=== PATIENT | female | born 1950 | race Caucasian/White ===

== ENCOUNTER 2019-05-14 15:35 | Outpatient (RCR) | payer MEDICARE, SELFPAY ==
--- NOTE | 2019-05-15 06:55 | ONC FU_ITS ---
Dr. Cerna Patient Follow-Up Note Patient: Arvind Brandon Unit #: [id number]: 1950 Dicatated By: Star Cerna M.D.Date of Visit:May 14, 2019 Onc Med Follow-up/Prog Note Chief Complaint: Breast cancer. History of Present Illness: This is a 69 year-old woman with lobular carcinoma involving the upper inner quadrant of the right breast, Stage IA (pT1c, N0, M0), ER/RI positive HER-2 negative. She was incidentally discovered to have an abnormal right breast lesion and an aortic aneurysm on a CT chest which was performed for right clavicular pain. Screening mammogram on 05/28/2015 was showed a new solid irregular mass measuring 15 x 16 mm in the posterior medial right breast along the nipple line. CT angiogram done for further evaluation of aortic aneurysm showed thoracic aortic ductus diverticulum. Again, right breast mass was noted as well as hiatal hernia and scoliosis of the T-spine. On 06/25/15 additional mammogram and ultrasound confirmed suspicious 1.6 cm mass at the 3:00 position of the right breast. She then underwent lumpectomy without sentinel lymph node biopsy on 07/11/[address] Grimaldo. Her surgical pathology showed 16mm grade 2, moderately differentiated invasive lobular carcinoma with negative margins, but inferior margin was close at 1 mm, with no lymphovascular invasion. Prognostic profile was ER 100%, RI 8%, HER-2/jose j 1.1 by FISH, IHC 1+. Thus, pT1c. On 07/25/2015 she had a resection of 6 axillary sentinel lymph nodes, all negative for metastatic disease. Thus, clinical stage at least IA (pT1c, N0, M0). Her Oncotype DX score returned at 29, corresponding to a 19% risk of distant recurrence following hormonal therapy alone. I had seen her on 09/10/2015 to discuss the Oncotype DX results and to plan further treatment. She opted not to take adjuvant chemotherapy. She was then given radiation to the right breast, which she completed on 11/17/2015 to a total dose of 6600 cGy. She began adjuvant hormonal therapy with anastrozole in December 2015. On her follow-up visit on 08/12/2016 she did report some increase in musculoskeletal pain, but she was able to continue the anastrozole. By December her pain had worsened significantly, and at that point I did have her stop treatment. She was then seen for a follow-up visit on 02/21/2017. Her pain had improved somewhat after stopping anastrozole, but it had not completely resolved. I discussed other options for adjuvant hormonal therapy. She decided to try the anastrozole again. Her other medical illnesses have been limited to hypothyroidism, GERD, and degenerative arthritis/degenerative disease of the spine. She had smoked in the past, but only for a couple of years. She had quit smoking by age 32. INTERIM HISTORY: I had seen her for a followup visit on 06/06/2017. Her joint pain had worsened significantly, and I did have her stop the anastrozole and transition to exemestane 25 mg daily. She unfortunately also experienced multiple side effects with exemestane including fatigue, weight gain, and hair loss along with increased musculoskeletal pain. As of her follow-up visit on 09/05/2017 I did have her stop treatment. She was then offered the option to continue adjuvant hormonal therapy with tamoxifen, but initially she was reluctant to try it. She was seen for a scheduled follow-up visit on 11/17/2017. At that point she did agree to begin further adjuvant hormonal therapy with tamoxifen 20 mg daily. She stopped it as of 01/23/2018 due to multiple side effects, mainly that she felt bloated all the time. She also was having vaginal discharge. She opted to attempt no further hormonal therapy, and she was then followed on observation/expectant management. She is seen for a follow-up visit. She indicates that on 03 May while visiting her sister she fell down the stairs, landing on her back. She says the fall jolted everything, and she has since then continued to have severe pain in her lower back and hips. She also has been having pain in the right lower quadrant abdominal area. A week prior to that episode she had developed some pain in her upper back area and with her right hand was not functioning properly. That pain was getting better. Her activity has been more limited since the fall, but she is still trying to work. She says she has hardly any appetite. She has not had fever. She recently had an episode of night sweating. She does not complain of shortness of breath, but she has had some wheezing and she also reports having a cough. She has not been having chest pain. She has had some nausea and since the fall she is also had some constipation. Bladder function remains adequate. She does not complain of headache or dizziness. She is still having some numbness in the right arm and hand. Medications: Aleve 1 (220 mg) Capsule Oral PRN, Aspirin Adult 1 Tablet (of 325 mg) Oral PRN, Omeprazole 1 (20 mg) Tablet, enteric coated Oral daily Allergies: No Known Allergies. Review of Systems: Constitutional - Her activity is more limited, but she is still working. She has hardly any appetite. No fever or hot flashes. She recently had an episode of night sweating. ECOG score is 1, ENMT - No sinus congestion/drainage. No mouth sores. No sore throat or difficulty swallowing, Hematologic/Lymphatic - No abnormal bruising or bleeding, Respiratory - No shortness of breath, but she has had some wheezing. She has had some cough. No pleuritic pain or hemoptysis, Cardiovascular - No angina pain. No palpitations, Gastrointestinal - She has had some nausea. Her acid reflux is managed with medication. She has had constipation since the fall. No blood in the stool or black stools, Genitourinary (F) - No dysuria or hematuria. No urinary frequency. No urgency or incontinence, Musculoskeletal - She has been having severe pain in her lower back and hips since falling down the stairs. One week earlier she had some pain in her upper back, Integumentary - No skin complications, Neurologic - No headache or dizziness. She has some numbness/tingling in her right arm and hand. She has no other focal neurologic symptoms, Psychiatric - No anxiety or depression. She is having difficulty sleeping. Vital Signs: Performed on May 14, 2019 16:02 Height - 65.00 in Weight - 219.4 lbs (LOW) BSA - 2.06 sq.m BMI - 36.51 (HIGH) Temperature - 98.8 F Pulse - 96 /min Respiration - 24 /min BP - 131/85 mm(hg) O2 Sat - 99 % Pain - 9 Physical Examination: Constitutional - She appears to be in significant discomfort, Eyes - Sclerae nonicteric. Conjunctivae clear, ENMT - No lesions noted in the oral cavity, Hematologic/Lymphatic - No cervical or clavicular adenopathy, Respiratory - Lungs are clear with good air movement bilaterally, Cardiovascular - Heart rhythm is regular. There is a II/ systolic murmur. There is no gallop or rub noted, Abdomen - Soft. Liver and spleen are not enlarged. There is no abdominal mass or ascites noted and there is no inguinal adenopathy, Back/Spine - There is localized mild tenderness in the upper back just to the right of the midline. There is more generalized tenderness in the lumbar area, Extremities - No edema, Neurologic - No focal neurologic deficits noted. Impression: 1. Patient with invasive lobular carcinoma of the right breast, stage IA (pT1c, N0, M0), ER/RI positive and HER-2/jose j negative. She was intermediate risk by Oncotype DX with a score of 29 corresponding to a 19% risk of distal recurrence following hormonal treatment alone. 2. Her initial treatment included lumpectomy and right axillary sentinel lymph node biopsy. Adjuvant chemotherapy was recommended, but she declined. She then underwent radiation to the right breast, which she completed on 11/17/2015 to a total dose of 6600 cGy. 3. She began adjuvant hormonal therapy with anastrozole in December 2015. It was stopped a year later due to worsening musculoskeletal pain. 4. She began further adjuvant hormonal therapy with exemestane in May 2017, but discontinued as of August 2017 due to multiple side effects. Her other medical illnesses include: 5. GERD. 6. Hypothyroidism. 7. Osteoarthritis. 8. Scoliosis with lower back pain. As of her visit on 11/17/2017 she did agree to a trial of further adjuvant hormonal therapy with tamoxifen 20 mg daily. She stopped it as of 01/23/2018 due to multiple side effects, most significantly bloating and vaginal discharge. Those symptoms had subsequently improved. She opted to attempt no further hormonal therapy, and she was then followed on observation/expectant management. During follow-up she continued to have some fatigue, and she also reported increasing pain in her hips, enough that it was limiting her activity. There did not appear to be any evidence, though, of recurrence of her breast cancer. She presents now with increased pain in the lower back/hip area after falling down the stairs and landing on her back. Since the fall she also has been having significant pain in the right lower quadrant abdominal area. A week prior to that episode she was having pain in her upper back with associated neurologic symptoms in the right arm and hand. Plan: She will be scheduled to come in for CBC and comprehensive metabolic profile, CT abdomen/pelvis, and bone scan. She will have further evaluation as indicated. Signed By: Star Cerna M.D. <<Signature on File>>
== END 2019-06-08 23:59 | disposition home or self-care (01) ==
LOC: ONCMED 15:35
PROVIDERS: Family Provider Family Medicine; PCP Family Medicine; Visit Provider Internal Medicine Medical Oncology
DX: Z08 Encounter for follow-up examination after completed treatment for malignant neoplasm (principal); Z85.3 Personal history of malignant neoplasm of breast; E03.9 Hypothyroidism, unspecified; K21.9 Gastro-esophageal reflux disease without esophagitis; M19.90 Unspecified osteoarthritis, unspecified site; R10.31 Right lower quadrant pain; M41.86 Other forms of scoliosis, lumbar region; M54.6 Pain in thoracic spine; Z92.23 Personal history of estrogen therapy; Z92.3 Personal history of irradiation; Z87.891 Personal history of nicotine dependence
CPT/HCPCS: 99214

== ENCOUNTER 2019-05-31 07:11 | Outpatient (CLI) | payer MEDICARE, SELFPAY ==
--- NOTE | 2019-05-31 07:17 | CT_ITS ---
WS: [id number] CT ABDOMEN AND PELVIS WITH CONTRAST HISTORY: BREAST CANCER TECHNIQUE: Imaging performed of the abdomen and pelvis with IV contrast. Single phase imaging of the abdomen. Coronal and sagittal reformats are submitted. All CT scans at [facility] use at least one of these dose optimization techniques: automated exposure control; mA and/or kV adjustment per patient size (includes targeted exams where dose is matched to clinical indication); or iterativ e reconstruction. IV CONTRAST: Omnipaque 300; 95 mL IV. Oral contrast: Yes. DLP: 1410.2 mGy.cm COMPARISON: Right-sided abdominal pain. Prior breast cancer history. Lower thorax: Linear subsegmental atelectasis at the LEFT base. Heart is normal size. Moderate size h iatal hernia. Liver/biliary system: Normal size with no intrahepatic dilatation. Gallbladder: Normal. No gallstones or wall thickening. No pericholecystic fluid. Pancreas: Normal. Spleen: Normal. Adrenal glands: Normal. Right kidney: Normal. Left kidney: Cortical hypodensity in the lower pole is too small to characterize. No solid mass. No r enal obstruction. Aorta: Normal. Lymphadenopathy: None. Free fluid: None. GI tract: Normal appendix. There is moderate diffuse fecal retention and constipation. Scattered dive rticula in the sigmoid colon no mass or mucosal thickening identified by CT. Abdominal wall: Fat-containing umbilical hernia with an orifice of 1.5 cm. Pelvis: No pelvic mass or fluid. Urinary bladder is minimally distended. No adenopathy. Mild atrophy of the muscles. Bones: Degenerative LEFT convex scoliosis of the lumbar spine. L1 compression fracture approximately 20%. No retropulsion. Suspect this fracture is acute to subacute. Does not appear to be a pathologica l fracture. CT/CT abdomen pelvis w con* [id number] IMPRESSION: 1. Moderate constipation and scattered diverticular disease. No acute divertic ulitis or obstruction. 2. Acute to subacute L1 compression fracture by 20% without retropulsion. Does not appear to be a pathological fracture. 3. Subsegmental atelectasis LEFT lung base. 4. Moderate hiatal hernia.
--- NOTE | 2019-05-31 07:18 | NM_ITS ---
WS: [id number] NUCLEAR MEDICINE WHOLE BODY BONE SCAN HISTORY: BREAST CANCER COMPARISON: CT 05/31/2019 reviewed. TECHNIQUE: The patient was injected with 27.2 mCi of Technetium 99m HDP and serial whole-body scintig ashley have been performed with anterior and posterior images. Large [id number] imaging over the rib s and skull. Focal area of increased uptake in the L1 vertebral body, slightly greater on the LEFT than the RIGHT. Corresponds to the fracture seen on the recent CT. S-shaped thoracolumbar scoliosis. No additional s pine fractures. No rib lesions identified. Mild uptake within the AC joints, glenohumeral joints and at the knees from arthritis. Soft tissue uptake is normal. Normal activity in the kidneys. NM/NM bone scan whole body* [id number] IMPRESSION: 1. No evidence for metastatic osseous disease. 2. Moderate intense uptake at L1 corresponds to the fracture seen on CT also. Favor osteoporotic fracture.
[2019-05-31] MEDS: iohexol 300 mg/mL 50 mL Btl PO (07:31)
[2019-05-31 08:12] LABS: Basophils % 0.5 %; Eosinophils # 0.5 10^3/uL (0.0-0.8); Eosinophils % 6.9 %; Hematocrit 39.1 % (37.0-47.0); Hemoglobin 12.6 g/dL (11.5-15.3); Lymphocytes # 2.3 10^3/uL (0.8-4.8); Lymphocytes % 35.3 %; Mean Corpuscular HGB Conc 32.2 g/dL (30.0-36.0); Mean Corpuscular Volume 90.1 fL (81-99); Monocytes # 0.6 10^3/uL (0.2-0.9); Monocytes % 9.2 %; Neutrophils # 3.2 10^3/uL (1.8-7.7); Neutrophils % 47.9 %; Nucleated Red Blood Cells % 0 %; Platelet Count 275 10^3/cmm (130-400); Red Blood Count 4.34 10^6/uL (4.1-5.3); Red Cell Distribution Width 14.6 % (12.1-15.1); White Blood Count 6.6 10^3/uL (4.0-10.0)
[2019-05-31 08:37] LABS: Blood Urea Nitrogen 13 mg/dL (8-23); Glomerular Filtration Rate 83.5 mL/min (90-130)
[2019-05-31 08:51] LABS: Alanine Aminotransferase 10 U/L (0-33); Albumin Level 4.9 g/dL (3.5-5.2); Alkaline Phosphatase 84 IU/L (35-105); Anion Gap 16.3 (5-19); Aspartate Amino Transferase 9 U/L (0-32); Calcium 10.5 mg/Dl (8.8-10.2); Carbon Dioxide 26 mmol/L (22-29); Chloride 104 mmol/L (98-107); Globulin 2.2 g/dL (1.3-4.6); Glucose 118 mg/dL (74-106); Potassium 4.3 mmol/L (3.5-5.1); Sodium 142 mmol/L (136-145); Thyroid Stimulating Hormone 4.24 uIU/mL (0.27-4.20); Total Bilirubin 0.4 mg/dL (0.15-1.2); Total Protein 7.1 g/dL (6.6-8.7)
[2019-05-31 08:58] LABS: 25 Hydroxy Vitamin D 17 ng/mL (30-100)
[2019-05-31] MEDS: iohexol 300 mg/mL 100 mL Btl IV (09:39)
[2019-05-31 15:49] LABS: Chol HDL Ratio 3.08 mg/dL (0.0-4.40); Cholesterol 268 mg/dL (0-200); HDL Cholesterol 87 mg/dL (60-100); LDL Cholesterol Calculated 163 mg/dL (50-129); LDL HDL Ratio 1.87 RATIO (0.00-3.22); Triglycerides 92 mg/dL (0-150)
== END 2019-05-31 07:12 | disposition home or self-care (01) ==
PROVIDERS: Family Provider Family Medicine; PCP Family Medicine; Visit Provider Internal Medicine Medical Oncology
DX: C50.211 Malignant neoplasm of upper-inner quadrant of right female breast (principal); M89.8X9 Other specified disorders of bone, unspecified site; E03.9 Hypothyroidism, unspecified; R10.31 Right lower quadrant pain; K44.9 Diaphragmatic hernia without obstruction or gangrene; J98.11 Atelectasis; M48.56XA Collapsed vertebra, not elsewhere classified, lumbar region, initial encounter for fracture; K59.00 Constipation, unspecified; K57.90 Diverticulosis of intestine, part unspecified, without perforation or abscess without bleeding
CPT/HCPCS: 36415; 74177; 78306; 80053; 80061; 82306; 84443; 85025; A9561

== ENCOUNTER 2019-06-18 06:07 | Outpatient (RCR) | payer MEDICARE, SELFPAY ==
--- NOTE | 2019-06-18 11:10 | MM_ITS ---
WS: [id number] BILATERAL DIGITAL DIAGNOSTIC MAMMOGRAPHY WITH CAD CLINICAL INFORMATION: HX OF BREAST CA HISTORY: History of right lumpectomy with radiation therapy. COMPARISON: June 07, 2018 TECHNIQUE: Bilateral CC and MLO views. FINDINGS: The breasts are composed of heterogeneous fibroglandular density tissue, which can limit the detectio n of small underlying mass lesions. No suspicious mass, asymmetry, calcifications, or architectural d istortion. Stable postoperative changes lumpectomy with parenchymal fibrosis medial posterior right b reast. Prominent asymmetric breast tissue upper outer right breast is unchanged. No evidence of malig brissa. MM/[id number] IMPRESSION: BI-RADS: 2-Benign FOLLOW UP: 1 Year Follow-up Recommend return to annual diagnostic mammography.
== END 2019-07-07 23:59 | disposition home or self-care (01) ==
LOC: ONCMED 06:07
PROVIDERS: Family Provider Family Medicine; PCP Family Medicine; Visit Provider Internal Medicine Medical Oncology
DX: Z85.3 Personal history of malignant neoplasm of breast (principal); Z92.3 Personal history of irradiation
CPT/HCPCS: 77066

== ENCOUNTER 2020-04-25 11:12 | Outpatient (CLI) | payer MEDICARE, SELFPAY ==
[2020-01-07 12:13] LABS: Basophils % 0.5 %; Eosinophils # 0.1 10^3/uL (0.0-0.8); Eosinophils % 1.7 %; Hematocrit 41.8 % (37.0-47.0); Hemoglobin 12.7 g/dL (11.5-15.3); Lymphocytes # 1.5 10^3/uL (0.8-4.8); Lymphocytes % 19.9 %; Mean Corpuscular HGB Conc 30.4 g/dL (30.0-36.0); Mean Corpuscular Hemoglobin 28.9 pg (28.0-34.0); Mean Platelet Volume 10.6 fL (7.4-10.4); Monocytes # 0.7 10^3/uL (0.2-0.9); Monocytes % 9.4 %; Neutrophils # 5.25 10^3/uL (1.8-7.7); Neutrophils % 68.2 %; Nucleated Red Blood Cells % 0 %; Platelet Count 222 10^3/cmm (130-400); Red Cell Distribution Width 14.9 % (12.1-15.1); White Blood Count 7.7 10^3/uL (4.0-10.0)
[2020-01-07 13:00] LABS: Alanine Aminotransferase 10 U/L (0-33); Albumin Level 4.4 g/dL (3.5-5.2); Alkaline Phosphatase 60 IU/L (35-105); Aspartate Amino Transferase 7 U/L (0-32); Blood Urea Nitrogen 11 mg/dL (8-23); Carbon Dioxide 24 mmol/L (22-29); Chloride 106 mmol/L (98-107); Globulin 2.9 g/dL (1.3-4.6); Glomerular Filtration Rate 83.5 mL/min (90-130); Glucose 104 mg/dL (65-115); Osmolality Calculated 288 mOsm/kg (285-295); Sodium 141 mmol/L (136-145); Total Bilirubin 0.2 mg/dL (0.15-1.2); Total Protein 7.3 g/dL (6.6-8.7)
== END 2020-04-25 11:13 | disposition home or self-care (01) ==
PROVIDERS: PCP Family Medicine; Visit Provider Internal Medicine Medical Oncology
DX: C50.211 Malignant neoplasm of upper-inner quadrant of right female breast (principal); Z17.0 Estrogen receptor positive status [ER+]; Z78.0 Asymptomatic menopausal state
CPT/HCPCS: 80053; 85025

== ENCOUNTER 2020-06-30 13:01 | Outpatient (CLI) | payer MEDICARE, SELFPAY ==
--- NOTE | 2020-06-30 13:16 | MM_ITS ---
WS: [id number] BILATERAL DIGITAL DIAGNOSTIC MAMMOGRAM MAMMOGRAPHY WITH CAD CLINICAL INFORMATION: HX OF BREAST CA COMPARISON: June 18, 2019 TECHNIQUE: Bilateral CC, MLO, and ML views FINDINGS: Scattered fibroglandular densities bilaterally. Prior lumpectomy inner quadrant right breast with par enchymal fibrosis. A few stable punctate calcifications right breast. No suspicious focal mass, asymmetry, calcifications, or architectural distortion. No evidence of jayy gnancy. MM/[id number] IMPRESSION: BI-RADS: 2-Benign FOLLOW UP: 1 Year Follow-up Recommend return to annual diagnostic mammography.
== END 2020-06-30 13:02 | disposition home or self-care (01) ==
LOC: RADSHAW 13:03
PROVIDERS: PCP Family Medicine; Visit Provider Internal Medicine Medical Oncology
DX: C50.211 Malignant neoplasm of upper-inner quadrant of right female breast (principal)
CPT/HCPCS: 77066

== ENCOUNTER 2020-07-17 06:15 | Outpatient (CLI) | payer MEDICARE, SELFPAY ==
[2020-07-17 13:30] LABS: Basophils % 0.5 %; Eosinophils # 0.2 10^3/uL (0.0-0.8); Hematocrit 41.8 % (37.0-47.0); Hemoglobin 13.1 g/dL (11.5-15.3); Lymphocytes # 2.1 10^3/uL (0.8-4.8); Lymphocytes % 33.5 %; Mean Corpuscular HGB Conc 31.3 g/dL (30.0-36.0); Mean Corpuscular Hemoglobin 29.2 pg (28.0-34.0); Mean Corpuscular Volume 93.1 fL (81-99); Mean Platelet Volume 10.4 fL (7.4-10.4); Monocytes # 0.5 10^3/uL (0.2-0.9); Monocytes % 8.1 %; Neutrophils # 3.42 10^3/uL (1.8-7.7); Neutrophils % 54.7 %; Nucleated Red Blood Cells % 0 %; Platelet Count 258 10^3/cmm (130-400); Red Blood Count 4.49 10^6/uL (4.1-5.3); Red Cell Distribution Width 14.6 % (12.1-15.1); White Blood Count 6.3 10^3/uL (4.0-10.0)
[2020-07-17 13:47] LABS: Alanine Aminotransferase 11 U/L (0-33); Albumin Level 4.4 g/dL (3.5-5.2); Alkaline Phosphatase 62 IU/L (35-105); Aspartate Amino Transferase 10 U/L (0-32); Blood Urea Nitrogen 13 mg/dL (8-23); Calcium 9.5 mg/dL (8.5-10.5); Carbon Dioxide 26 mmol/L (22-29); Chloride 105 mmol/L (98-107); Globulin 2.8 g/dL (1.3-4.6); Glomerular Filtration Rate 62.3 mL/min (90-130); Glucose 102 mg/dL (65-115); Osmolality Calculated 290 mOsm/kg (285-295); Sodium 140 mmol/L (136-145); Total Bilirubin 0.4 mg/dL (0.15-1.2); Total Protein 7.2 g/dL (6.6-8.7)
--- NOTE | 2020-07-17 15:03 | ONC FU_ITS ---
Dr. Cerna Patient Follow-Up Note Patient: Arvind Brandon Unit #: [id number]: [id number] Dicatated By: Star Cerna M.D.Date of Visit:Jul 17, 2020 Onc Med Follow-up/Prog Note Chief Complaint: Breast cancer. History of Present Illness: This is a 70 year-old woman with lobular carcinoma involving the upper inner quadrant of the right breast, Stage IA (pT1c, N0, M0), ER/OR positive HER-2 negative. She was incidentally discovered to have an abnormal right breast lesion and an aortic aneurysm on a CT chest which was performed for right clavicular pain. Screening mammogram on 05/28/2015 was showed a new solid irregular mass measuring 15 x 16 mm in the posterior medial right breast along the nipple line. CT angiogram done for further evaluation of aortic aneurysm showed thoracic aortic ductus diverticulum. Again, right breast mass was noted as well as hiatal hernia and scoliosis of the T-spine. On 06/25/15 additional mammogram and ultrasound confirmed suspicious 1.6 cm mass at the 3:00 position of the right breast. She then underwent lumpectomy without sentinel lymph node biopsy on 07/11/[address] Grimaldo. Her surgical pathology showed 16mm grade 2, moderately differentiated invasive lobular carcinoma with negative margins, but inferior margin was close at 1 mm, with no lymphovascular invasion. Prognostic profile was ER 100%, OR 8%, HER-2/jose j 1.1 by FISH, IHC 1+. Thus, pT1c. On 07/25/2015 she had a resection of 6 axillary sentinel lymph nodes, all negative for metastatic disease. Thus, clinical stage at least IA (pT1c, N0, M0). Her Oncotype DX score returned at 29, corresponding to a 19% risk of distant recurrence following hormonal therapy alone. I had seen her on 09/10/2015 to discuss the Oncotype DX results and to plan further treatment. She opted not to take adjuvant chemotherapy. She was then given radiation to the right breast, which she completed on 11/17/2015 to a total dose of 6600 cGy. She began adjuvant hormonal therapy with anastrozole in December 2015. On her follow-up visit on 08/12/2016 she did report some increase in musculoskeletal pain, but she was able to continue the anastrozole. By December her pain had worsened significantly, and at that point I did have her stop treatment. She was then seen for a follow-up visit on 02/21/2017. Her pain had improved somewhat after stopping anastrozole, but it had not completely resolved. I discussed other options for adjuvant hormonal therapy. She decided to try the anastrozole again. I had seen her for a followup visit on 06/06/2017. Her joint pain had worsened significantly, and I did have her stop the anastrozole and transition to exemestane 25 mg daily. She unfortunately also experienced multiple side effects with exemestane including fatigue, weight gain, and hair loss along with increased musculoskeletal pain. As of her follow-up visit on 09/05/2017 I did have her stop treatment. She was then offered the option to continue adjuvant hormonal therapy with tamoxifen, but initially she was reluctant to try it. She was seen for a scheduled follow-up visit on 11/17/2017. At that point she did agree to begin further adjuvant hormonal therapy with tamoxifen 20 mg daily. She stopped it as of 01/23/2018 due to multiple side effects, mainly that she felt bloated all the time. She also was having vaginal discharge. She opted to attempt no further hormonal therapy, and she was then followed on observation/expectant management. Her other medical illnesses have been limited to hypothyroidism, GERD, and degenerative arthritis/degenerative disease of the spine. She had smoked in the past, but only for a couple of years. She had quit smoking by age 32. INTERIM HISTORY: She has been feeling good generally. 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 Since then she has been feeling a lot better. She still has limited activity due to her underlying degenerative arthritis. ECOG score is 2. She has good appetite. She has no fever, night sweats, or hot flashes. She has no shortness of breath, cough, or chest pain. She has had mild constipation. She has no other GI or complaints. She has pain in her back and right hip with activity, but she does not have much pain at rest. She does not complain of headache or dizziness, and she has no focal neurologic symptoms. Medications: Aleve 1 (220 mg) Capsule Oral PRN, Aspirin Adult 1 Tablet (of 325 mg) Oral PRN, Omeprazole 1 (20 mg) Tablet, enteric coated Oral daily Allergies: No Known Allergies. Vital Signs: Performed on Jul 17, 2020 14:26 Height - 65.00 in Weight - 220 lbs (HIGH) BSA - 2.06 sq.m BMI - 36.61 (HIGH) Temperature - 98.6 F Pulse - 99 /min Respiration - 18 /min BP - 150/98 mm(hg) (HIGH) O2 Sat - 97 % Pain - 0 Fatigue - 0 Physical Examination: Constitutional - She looks good generally, Eyes - Sclerae nonicteric. Conjunctivae clear, ENMT - No lesions noted in the oral cavity, Hematologic/Lymphatic - No cervical or clavicular adenopathy, Respiratory - Lungs are clear with good air movement bilaterally, Cardiovascular - Heart rhythm is regular. There is a II/ systolic murmur. There is no gallop or rub noted, Breasts - There is slight induration at the lumpectomy site in the right breast. There are no breast masses noted. There is no axillary adenopathy, Abdomen - Soft. Liver and spleen are not enlarged. There is no abdominal mass or ascites noted and there is no inguinal adenopathy, Extremities - No edema. Pedal pulses are palpable bilaterally, Neurologic - No focal neurologic deficits noted. Lab/Imaging: Test performed on Jul 17, 2020 13:12 Sodium 140 mmol/L Potassium 4.0 mmol/L Chloride 105 mmol/L CO2 26 mmol/L Anion Gap 13.0 BUN 13 mg/dL Creatinine 0.9 mg/dL Cr Clearance (Est) 94.25 mL/min eGFR 62.3 mL/min Glucose 102 mg/dL Osmolality - Calculated 290 mOsm/kg Calcium 9.5 mg/dL Protein, Total 7.2 g/dL Albumin 4.4 g/dL Globulin 2.8 g/dL Bilirubin, Total 0.4 mg/dL ALT (SGPT) 11 U/L AST (SGOT) 10 U/L Alkaline Phosphatase 62 IU/L WBC 6.3 10 3/uL RBC 4.49 10 6/uL HGB 13.1 g/dL HCT 41.8 % MCV 93.1 fL MCH 29.2 pg MCHC 31.3 g/dL RDW 14.6 % Platelet Count 258 10 3/cmm MPV 10.4 fL Neutrophils 3.42 10 3/uL Lymphocytes 2.1 10 3/uL Monocytes 0.5 10 3/uL Eosinophils 0.2 10 3/uL Basophils 0.0 10 3/uL Neutrophil % 54.7 % Lymphocyte % 33.5 % Monocyte % 8.1 % Eosinophil % 3.0 % Basophils % 0.5 % NRBC % 0 % Her bilateral diagnostic mammogram on 06/30/2020 was BI-RADS 2, benign. Yearly follow-up was recommended. Problem List: 1. Moderately differentiated invasive lobular carcinoma of the right breast, stage IA (pT1c, N0, M0), ER/OR positive and HER-2/jose j negative. She was intermediate risk by Oncotype DX with a score of 29 corresponding to a 19% risk of distal recurrence following hormonal treatment alone. She declined adjuvant chemotherapy. 2. GERD. 3. Hypothyroidism. 4. Osteoarthritis. 5. Scoliosis with lower back pain. Problems Addressed with this Encounter and Plan: Patient with invasive lobular carcinoma of the right breast, stage IA (pT1c, N0, M0), ER/OR positive and HER-2/jose j negative. She was intermediate risk by Oncotype DX with a score of 29 corresponding to a 19% risk of distal recurrence following hormonal treatment alone. Her initial treatment included lumpectomy and right axillary sentinel lymph node biopsy. She declined adjuvant chemotherapy. She then underwent radiation to the right breast, which she completed on 11/17/2015 to a total dose of 6600 cGy. She began adjuvant hormonal therapy with anastrozole in December 2015. It was stopped a year later due to worsening musculoskeletal pain. She began further adjuvant hormonal therapy with exemestane in May 2017, but discontinued as of August 2017 due to multiple side effects. As of her visit on 11/17/2017 she did agree to a trial of further adjuvant hormonal therapy with tamoxifen 20 mg daily. She stopped it as of 01/23/2018 due to multiple side effects, most significantly bloating and vaginal discharge. Those symptoms had subsequently improved. She was then followed on observation/expectant management. During follow-up she has had ongoing issues with the degenerative arthritis, which does limit her activity. Overall, though, she has been doing well clinically. She is now close to 5 years out from completion of radiation with no evidence of recurrence of the breast cancer. She will now be continuing regular follow-up with Dr. Curtis. She is aware that she does need to have a yearly diagnostic mammogram. I will just see her again as needed. Signed By: Star Cerna M.D. <<Signature on File>>
== END 2020-07-17 06:16 | disposition home or self-care (01) ==
LOC: ONCMED 06:17
PROVIDERS: PCP Family Medicine; Visit Provider Internal Medicine Medical Oncology
DX: Z08 Encounter for follow-up examination after completed treatment for malignant neoplasm (principal); Z85.3 Personal history of malignant neoplasm of breast; M19.90 Unspecified osteoarthritis, unspecified site; Z92.23 Personal history of estrogen therapy; Z92.3 Personal history of irradiation
CPT/HCPCS: 36415; 80053; 85025; 99214

== ENCOUNTER 2021-05-22 12:56 | Outpatient (CLI) | payer MEDICARE, SELFPAY ==
--- NOTE | 2021-05-22 13:02 | XR_ITS ---
WS: [id number] DEXA (DUAL ENERGY X-RAY ABSORPTIOMETRY) Bone mineral density was performed using a Event[employer] machine. HISTORY: POSTMENOPAUSAL COMPARISON: 12/15/2015 Lumbar spine BMD (L1-L3): 1.229 T score: 0.5 Z score: 1. 0 Total hip BMD: Left: 0.824 g/cm2. T score: -1.5 Z score: -0.9 Right: 0.869 g/cm2. T score: -1.1 Z score: -0.5 10 year probability of a major osteoporotic fracture is 16%. Compared to the prior study from 2015. Lumbar spine bone mineral density has decreased by 7.9%. Bilateral hips bone mineral density has decreased by 5.5%. XR/XR DEXA axial skeleton* [id number] IMPRESSION: OSTEOPENIA based upon the WHO classification for females. As compared to the prior examination has been a significant DECREASE in bone mi neral density within the lumbar spine and hips.
== END 2021-05-22 12:57 | disposition home or self-care (01) ==
PROVIDERS: PCP Family Medicine; Visit Provider Nurse Practitioner Family
DX: Z78.0 Asymptomatic menopausal state (principal); M85.80 Other specified disorders of bone density and structure, unspecified site
CPT/HCPCS: 77080

== ENCOUNTER 2021-09-03 11:17 | Outpatient (CLI) | payer MEDICARE, SELFPAY ==
--- NOTE | 2021-09-03 11:33 | MM_ITS ---
WS: [id number] BILATERAL 3D TOMOSYNTHESIS DIGITAL DIAGNOSTIC MAMMOGRAPHY WITH CAD CLINICAL INFORMATION: MALIGNANT NEOPLASM OF UPPER INNER QUADRANT COMPARISON: June 30, 2020 TECHNIQUE: Bilateral CC, MLO, and ML views. FINDINGS: Scattered fibroglandular densities bilaterally. A few tiny punctate calcifications RIGHT breast. Prio r lumpectomy upper inner quadrant RIGHT breast with parenchymal fibrosis. No suspicious focal mass, asymmetry, calcifications, or architectural distortion. No evidence of jayy gnancy. MM/[place] [id number] IMPRESSION: BI-RADS: 2-Benign FOLLOW UP: 1 Year Follow-up Recommend return to annual diagnostic mammography.
== END 2021-09-03 11:18 | disposition home or self-care (01) ==
LOC: RAD 11:21
PROVIDERS: PCP Family Medicine; Visit Provider Nurse Practitioner Family
DX: C50.211 Malignant neoplasm of upper-inner quadrant of right female breast (principal)
CPT/HCPCS: 77062

== ENCOUNTER 2022-02-03 19:59 | Emergency (ER) | payer MEDICARE, SELFPAY ==
[2022-02-03 20:06] VITALS: BP 117/76; PULSE 75; RESP 16; TEMP 36.1; O2SAT 96; BMI 37.8
[2022-02-03 20:08] VITALS: PULSE 78; RESP 16; TEMP 36.1
--- NOTE | 2022-02-03 20:08 | CTR_ITS ---
PROCEDURE INFORMATION: Exam: CT Head Without Contrast Exam date and time: 02/03/2022 8:20 PM Age: 71 years old Clinical indication: Syncope and collapse; Patient HX: Witnessed syncopal episode without fall today. ; Additional info: Syncoope TECHNIQUE: Imaging protocol: Computed tomography of the head without contrast. Radiation optimization: All CT scans at this facility use at least one of these dose optimization techniques: automated exposure control; mA and/or kV adjustment per patient size (includes targeted exams where dose is matched to clinical indication); or iterative reconstruction. COMPARISON: MO bone scan whole body* [id number] 05/31/2019 7:18 AM RADIATION DOSE METRICS: Total DLP (mGy-cm): 1084.88 FINDINGS: Brain: No hemorrhage. No edema. Moderate diffuse cerebral atrophy. No significant white matter disease. No mass effect. Cerebral ventricles: No ventriculomegaly. Paranasal sinuses: Visualized sinuses are unremarkable. No fluid levels. Mastoid air cells: Visualized mastoid air cells are well aerated. Bones/joints: Unremarkable. No acute fracture. Soft tissues: Unremarkable. CT/CT head wo con* [id number] IMPRESSION: No acute intracranial abnormality.
--- NOTE | 2022-02-03 20:08 | XRR_ITS ---
PROCEDURE INFORMATION: Exam: XR Chest Exam date and time: 02/03/2022 8:26 PM Age: 71 years old Clinical indication: Other: Syncope TECHNIQUE: Imaging protocol: Radiologic exam of the chest. Views: 1 view. COMPARISON: CT chest con [id number] 11/14/2015 10:07 AM FINDINGS: Lungs: Unremarkable. No consolidation. Pleural spaces: Unremarkable. No pleural effusion. No pneumothorax. Heart/Mediastinum: Moderate to large hiatal hernia. No cardiomegaly. Bones/joints: Unremarkable. XR/XR chest 1V portable [id number] IMPRESSION: 1. No acute findings. 2. Moderate to large hiatal hernia.
--- NOTE | 2022-02-03 20:13 | ECG_ITS ---
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 Measurements Intervals [place] Rate: 75 P: 44 ND: 162 QRS: 56 QRSD: 82 T: 53 QT: 388 QTc: 436 Interpretive Statements SINUS RHYTHM No previous ECG available for comparison Electronically Signed On 02-04-2022 8:53:57 CDT by Mateo Zambrano M.D. [email or web address]
[2022-02-03 20:23] LABS: Basophils % 0.3 %; Eosinophils # 0.2 10^3/uL (0.0-0.8); Eosinophils % 2.2 %; Hematocrit 35.3 % (37.0-47.0); Hemoglobin 10.8 g/dL (11.5-15.3); Lymphocytes # 2.4 10^3/uL (0.8-4.8); Lymphocytes % 27.2 %; Mean Corpuscular HGB Conc 30.6 g/dL (30.0-36.0); Mean Corpuscular Hemoglobin 25.7 pg (28.0-34.0); Mean Platelet Volume 10.7 fL (7.4-10.4); Monocytes # 0.7 10^3/uL (0.2-0.9); Monocytes % 7.6 %; Neutrophils # 5.38 10^3/uL (1.8-7.7); Neutrophils % 62.5 %; Nucleated Red Blood Cells % 0 %; Platelet Count 292 10^3/cmm (130-400); Red Cell Distribution Width 16.2 % (12.1-15.1); White Blood Count 8.6 10^3/uL (4.0-10.0)
[2022-02-03 20:38] LABS: Anion Gap 13.9 (5-19); Blood Urea Nitrogen 23 mg/dL (8-23); Calcium 9.9 mg/dL (8.5-10.5); Carbon Dioxide 27 mmol/L (22-29); Chloride 100 mmol/L (98-107); Creatinine Clr Calc Pharmacy 76.2086; Glomerular Filtration Rate 71.1 mL/min (90-130); Glucose 110 mg/dL (65-115); Osmolality Calculated 288 mOsm/kg (285-295); Potassium 3.9 mmol/L (3.5-5.1); Sodium 137 mmol/L (136-145)
[2022-02-03 20:40] LABS: Troponin(5th) Baseline 6 ng/L (0-10)
[2022-02-03 20:59] VITALS: BP 146/101; BP 159/100; BP 168/108; PULSE 81; PULSE 82; PULSE 86
[2022-02-03] MEDS: lactated ringers 1,000 ML 999 ML IV (21:03)
--- NOTE | 2022-02-03 21:31 | W.ED.GENADLT ---
Documented by User: Jayjay Cheatham MD 02/03/22 21:54 HPI - General Adult General: Chief complaint: Syncope Stated complaint: syncope Time Seen by Provider: 02/03/22 20:08 History of Present Illness: HPI: [71]yo patient w/ remote hx of breast cancer BIBA after an episode of syncope at [facility] 30 minutes ago. Patient was playing the piano when this happened. The incident was witnessed by the patient?s [facility] congregations. Patient could not recall the incident but denies any post-ictal confusion, tongue biting or bladder/bowel incontinence. She has no prior history of seizures. Patient tells me that she felt briefly diaphoretic and light-headed prior to passing out. patient denies any prior hx of syncope in the past. No associated symptoms of chest pain, shortness of breath, palpitations or focal weakness right before the incident. No family hx of sudden cardiac or unexplained . Onset: 30 minutes ago Duration: ongoing Location: [facility] Severity: moderate Associated symptoms: Deny chest pain, dyspnea, nausea, rash, palpitations or vomiting Review of Systems Const: Denies: fever(s) or chills Eyes: Denies: change in vision ENMT: Denies: mouth pain Card: Denies: chest pain or palpitations Resp: Denies: dyspnea or non-productive cough GI: Denies: abdominal pain, nausea, vomiting or diarrhea : Denies: dysuria Musc: Denies: extremity pain Skin/Breast: Denies: rash or new lesions Neuro: Reports: other (+syncope); Denies: weakness in extremities Psych: Reports: other (Normal mood) Mike/Lymph: Denies: easy bruising PFSH ED PFSH: Medical History Breast cancer Social History Smoking and tobacco status: never smoked Alcohol intake: never Substance/Drug Use: never Physical Exam Const: COMMON NORMALS: alert HENMT: COMMON NORMALS: atraumatic HEAD & SCALP: atraumatic MOUTH: moist mucous membranes not abnormal Eye: COMMON NORMALS: EOMs intact bilaterally and conjunctivae normal CONJUNCTIVA: Yes conjunctivae normal Neck/C-Spine: COMMON NORMALS: full ROM and supple Resp: COMMON NORMALS: normal respiratory effort and clear to auscultation bilaterally AUSCULTATION: clear to auscultation bilaterally Cardio: COMMON NORMALS: regular rate RATE: regular rate GI: COMMON NORMALS: Soft to palpation and non-tender PALPATION: Yes Soft to palpation OTHER: No focal TTP. NO guarding rebound, guarding, rigidity. No CVA tenderness to percussion. Neg Shelton/Neg McBurney's point tenderness, no suprabupic tenderness to palpation. Extremity: COMMON NORMALS: full ROM Neuro: SENSORIUM/ORIENTATION: Yes alert MOTOR EXAM: No Abnormal motor strength present and Other motor observations present (no focal motor deficits) Psych: COMMON NORMALS: speech normal SPEECH: Yes normal speech MOOD & AFFECT: Yes euthymic mood Course Vital Signs: Vital signs: Vital Signs Temperature 97 F L 02/03/22 20:08 Pulse Rate 81 02/03/22 22:49 Respiratory Rate 18 02/03/22 22:49 Blood Pressure 133/79 02/03/22 22:49 Pulse Oximetry 97 02/03/22 22:49 Oxygen Delivery Me thod 02/03/22 22:49 MDM - General Adult Medical Decision Making [71]yo patient w/ no known PMH presenting to the ED with Syncope with diaphoreiss. No association with chest pain, dyspnea, palpitations, or focal neurological deficits. HDS Neuro intact. Lab work-up today including troponin within normal limit. Hemoglobin of 10.8 with no prior for comparison. EKG did not show any signs of third-degree heart block, STEMI, WPW, HOCM, Brugada, or QT prolongation. Pending second troponin. He received [address] head is negative for any acute pathology. Case signed out to Dr. Evans. Lab Data : 02/03/22 20:18 02/03/22 20:18 Radiology Impressions Chest X-Ray 02/03/22 20:08 IMPRESSION: 1. No acute findings. 2. Moderate to large hiatal hernia. Head CT 02/03/22 20:08 IMPRESSION: No acute intracranial abnormality. Laboratory Results WBC 8.6 10^3/uL (4.0-10.0) 02/03/22 20:18 RBC 4.20 10^6/uL (4.1-5.3) 02/03/22 20:18 Hgb 10.8 g/dL (11.5-15.3) L 02/03/22 20:18 Hct 35.3 % (37.0-47.0) L 02/03/22 20:18 MCV 84.0 fl (81-99) 02/03/22 20:18 MCH 25.7 pg (28.0-34.0) L 02/03/22 20:18 MCHC 30.6 g/dL (30.0-36.0) 02/03/22 20:18 RDW 16.2 % (12.1-15.1) H 02/03/22 20:18 Plt Count 292 10^3/cmm (130-400) 02/03/22 20:18 MPV 10.7 fL (7.4-10.4) H 02/03/22 20:18 Neut % (Auto) 62.5 % 02/03/22 20:18 Lymph % (Auto) 27.2 % 02/03/22 20:18 Talbot % (Auto) 7.6 % 02/03/22 20:18 Eos % (Auto) 2.2 % 02/03/22 20:18 Baso % (Auto) 0.3 % 02/03/22 20:18 Neut # (Auto) 5.38 10^3/uL (1.8-7.7) 02/03/22 20:18 Lymph # (Auto) 2.4 10^3/uL (0.8-4.8) 02/03/22 20:18 Talbot # (Auto) 0.7 10^3/uL (0.2-0.9) 02/03/22 20:18 Eos # (Auto) 0.2 10^3/uL (0.0-0.8) 02/03/22 20:18 Baso # (Auto) 0.0 10^3/uL (0.0-0.1) 02/03/22 20:18 Nucleated RBC % (auto) 0 % 02/03/22 20:18 Nucleated RBCs # 0.0 /100WBC 02/03/22 20:18 Sodium 137 mmol/L (136-145) 02/03/22 20:18 Potassium 3.9 mmol/L (3.5-5.1) 02/03/22 20:18 Chloride 100 mmol/L (98-107) 02/03/22 20:18 Carbon Dioxide 27 mmol/L (22-29) 02/03/22 20:18 Anion Gap 13.9 (5-19) 02/03/22 20:18 BUN 23 mg/dL (8-23) 02/03/22 20:18 Creatinine 0.8 mg/dL (0.5-0.9) 02/03/22 20:18 GFR Calculation 71.1 mL/min (90-130) L 02/03/22 20:18 Glucose 110 mg/dL (65-115) 02/03/22 20:18 Calculated Osmolality 288 mOsm/kg (285-295) 02/03/22 20:18 Calcium 9.9 mg/dL (8.5-10.5) 02/03/22 20:18 Troponin T Baseline 6 ng/L (0-10) 02/03/22 20:18 Troponin T 120 Minute 6.00 ng/L (0-10) 02/03/22 22:31 Delta Troponin T 0 ABS# (0-10) 02/03/22 22:31 Imaging Data Other Imaging: Radiologist's impression: PT [employer] [facility] [address] [address] Scan Report Signed Patient: Arvind Brandon Unit #: [id number] : 1950 Age/Sex: 71 / F ADM Date: 02/03/22 Loc: ER Room/Bed: Attending Dr: Ordering Provider/Ordering MD: Jayjay Cheatham MD Date of Service: 02/03/22 Procedure(s): CT head wo con* [id number] Accession Number(s): [id number] Report Number: [id number] PROCEDURE INFORMATION: Exam: CT Head Without Contrast Exam date and time: 02/03/2022 8:20 PM Age: 71 years old Clinical indication: Syncope and collapse; Patient HX: Witnessed syncopal episode without fall today. ; Additional info: Syncoope TECHNIQUE: Imaging protocol: Computed tomography of the head without contrast. Radiation optimization: All CT scans at this facility use at least one of these dose optimization techniques: automated exposure control; mA and/or kV adjustment per patient size (includes targeted exams where dose is matched to clinical indication); or iterative reconstruction. COMPARISON: [place] bone scan whole body* [id number] 05/31/2019 7:18 AM RADIATION DOSE METRICS: Total DLP (mGy-cm): 1084.88 FINDINGS: Brain: No hemorrhage. No edema. Moderate diffuse cerebral atrophy. No significant white matter disease. No mass effect. Cerebral ventricles: No ventriculomegaly. Paranasal sinuses: Visualized sinuses are unremarkable. No fluid levels. Mastoid air cells: Visualized mastoid air cells are well aerated. Bones/joints: Unremarkable. No acute fracture. Soft tissues: Unremarkable. CT/CT head wo con* [id number] IMPRESSION: No acute intracranial abnormality. ? Dictated By: Mika Dow DO Signed By: Mika Dow DO Signed Date/Time: 02/03/222057 DD/ [address] [address] XRay Report Signed Patient: Arvind Brandon Unit #: [id number] : 1950 Age/Sex: 71 / F ADM Date: 02/03/22 Loc: ER Room/Bed: Attending Dr: Ordering Provider/Ordering MD: Jayjay Cheatham MD Date of Service: 02/03/22 Procedure(s): XR chest 1V portable [id number] Accession Number(s): [id number] Report Number: [id number] PROCEDURE INFORMATION: Exam: XR Chest Exam date and time: 02/03/2022 8:26 PM Age: 71 years old Clinical indication: Other: Syncope TECHNIQUE: Imaging protocol: Radiologic exam of the chest. Views: 1 view. COMPARISON: CT chest wo con [id number] 11/14/2015 10:07 AM FINDINGS: Lungs: Unremarkable. No consolidation. Pleural spaces: Unremarkable. No pleural effusion. No pneumothorax. Heart/Mediastinum: Moderate to large hiatal hernia. No cardiomegaly. Bones/joints: Unremarkable. XR/XR chest 1V portable [id number] IMPRESSION: 1. No acute findings. 2. Moderate to large hiatal hernia. ? Dictated By: Mika Dow DO Signed By: Mika Dow DO Signed Date/Time: 02/03/222053 DD/ 25 Discharge Plan Discharge Patient Disposition: Home Clinical Impression: Syncope Condition: Stable Discharge Orders: Discharge ED (Routine); Ordered 02/03/22 Ordered By: Desi Evans Referrals: Robbie Curtis MD [Primary Care Provider] - Discharge Diet: Advance as tolerated Discharge Activity: Increase activity as tolerated Patient Instructions: Syncope (ED) Activity Restrictions/Additional Instructions: Please come back to the emergency room for any more breakthrough episodes of passing out. Come back if any weakness in her arms, drooling, difficulty speaking, any neurological symptoms, chest pain/shortness of breath/palpitation or any new or concerning issues. Please do not swim, bathe, operate heavy machinery or drive a vehicle unattended. Coding Level of Care Code ED Wrist Liner for Chg Fwd Exam Comprehensive Documented by User: Desi Evans MD 02/03/22 23:10 HPI - General Adult General: Chief complaint: Syncope Stated complaint: syncope Time Seen by Provider: 02/03/22 20:08 [facility] ED PFSH: Medical History Breast cancer Social History Smoking and tobacco status: never smoked Alcohol intake: never Substance/Drug Use: never Course Vital Signs: Vital signs: Vital Signs Temperature 97 F L 02/03/22 20:08 Pulse Rate 81 02/03/22 22:49 Respiratory Rate 18 02/03/22 22:49 Blood Pressure 133/79 02/03/22 22:49 Pulse Oximetry 97 02/03/22 22:49 Oxygen Delivery Me thod 02/03/22 22:49 MDM - General Adult Medical Decision Making [71]yo patient w/ no known PMH presenting to the ED with Syncope with diaphoreiss. No association with chest pain, dyspnea, palpitations, or focal neurological deficits. HDS Neuro intact. Lab work-up today including troponin within normal limit. Hemoglobin of 10.8 with no prior for comparison. EKG did not show any signs of third-degree heart block, STEMI, WPW, HOCM, Brugada, or QT prolongation. Pending second troponin. He received [address] head is negative for any acute pathology. Case signed out to Dr. Evans. Patient second troponin here is negative she feels improved she stable for discharge she is to follow-up with PCP and return if worsening. Lab Data : 02/03/22 20:18 02/03/22 20:18 Radiology Impressions Chest X-Ray 02/03/22 20:08 IMPRESSION: 1. No acute findings. 2. Moderate to large hiatal hernia. Head CT 02/03/22 20:08 IMPRESSION: No acute intracranial abnormality. Laboratory Results WBC 8.6 10^3/uL (4.0-10.0) 02/03/22 20:18 RBC 4.20 10^6/uL (4.1-5.3) 02/03/22 20:18 Hgb 10.8 g/dL (11.5-15.3) L 02/03/22 20:18 Hct 35.3 % (37.0-47.0) L 02/03/22 20:18 MCV 84.0 fl (81-99) 02/03/22 20:18 MCH 25.7 pg (28.0-34.0) L 02/03/22 20:18 MCHC 30.6 g/dL (30.0-36.0) 02/03/22 20:18 RDW 16.2 % (12.1-15.1) H 02/03/22 20:18 Plt Count 292 10^3/cmm (130-400) 02/03/22 20:18 MPV 10.7 fL (7.4-10.4) H 02/03/22 20:18 Neut % (Auto) 62.5 % 02/03/22 20:18 Lymph % (Auto) 27.2 % 02/03/22 20:18 Talbot % (Auto) 7.6 % 02/03/22 20:18 Eos % (Auto) 2.2 % 02/03/22 20:18 Baso % (Auto) 0.3 % 02/03/22 20:18 Neut # (Auto) 5.38 10^3/uL (1.8-7.7) 02/03/22 20:18 Lymph # (Auto) 2.4 10^3/uL (0.8-4.8) 02/03/22 20:18 Talbot # (Auto) 0.7 10^3/uL (0.2-0.9) 02/03/22 20:18 Eos # (Auto) 0.2 10^3/uL (0.0-0.8) 02/03/22 20:18 Baso # (Auto) 0.0 10^3/uL (0.0-0.1) 02/03/22 20:18 Nucleated RBC % (auto) 0 % 02/03/22 20:18 Nucleated RBCs # 0.0 /100WBC 02/03/22 20:18 Sodium 137 mmol/L (136-145) 02/03/22 20:18 Potassium 3.9 mmol/L (3.5-5.1) 02/03/22 20:18 Chloride 100 mmol/L (98-107) 02/03/22 20:18 Carbon Dioxide 27 mmol/L (22-29) 02/03/22 20:18 Anion Gap 13.9 (5-19) 02/03/22 20:18 BUN 23 mg/dL (8-23) 02/03/22 20:18 Creatinine 0.8 mg/dL (0.5-0.9) 02/03/22 20:18 GFR Calculation 71.1 mL/min (90-130) L 02/03/22 20:18 Glucose 110 mg/dL (65-115) 02/03/22 20:18 Calculated Osmolality 288 mOsm/kg (285-295) 02/03/22 20:18 Calcium 9.9 mg/dL (8.5-10.5) 02/03/22 20:18 Troponin T Baseline 6 ng/L (0-10) 02/03/22 20:18 Troponin T 120 Minute 6.00 ng/L (0-10) 02/03/22 22:31 Delta Troponin T 0 ABS# (0-10) 02/03/22 22:31 Discharge Plan Discharge Patient Disposition: Home Clinical Impression: Syncope Condition: Stable Discharge Orders: Discharge ED (Routine); Ordered 02/03/22 Ordered By: Desi Evans Referrals: Robbie Curtis MD [Primary Care Provider] - Discharge Diet: Advance as tolerated Discharge Activity: Increase activity as tolerated Patient Instructions: Syncope (ED) Activity Restrictions/Additional Instructions: Please come back to the emergency room for any more breakthrough episodes of passing out. Come back if any weakness in her arms, drooling, difficulty speaking, any neurological symptoms, chest pain/shortness of breath/palpitation or any new or concerning issues. Please do not swim, bathe, operate heavy machinery or drive a vehicle unattended. Coding Level of Care Code ED Wrist Liner for Chg Fwd Exam Comprehensive
[2022-02-03 22:49] VITALS: BP 133/79; PULSE 81; RESP 18; O2SAT 97
[2022-02-03 23:07] LABS: Troponin 5 2HR Delta 0 ABS# (0-10)
[2022-02-03 23:28] VITALS: BP 131/83; PULSE 84; RESP 16; O2SAT 97
== END 2022-02-03 23:35 | disposition home or self-care (01) ==
PROVIDERS: Emergency Medicine; Emergency Provider Emergency Medicine; PCP Family Medicine
DX: R55 Syncope and collapse (principal); Z85.3 Personal history of malignant neoplasm of breast
CPT/HCPCS: 36415; 70450; 71045; 80048; 84484; 85025; 93005; 96360; 96361; 99285

== ENCOUNTER 2022-09-09 14:12 | Outpatient (CLI) | payer MEDICARE, SELFPAY ==
--- NOTE | 2022-09-09 14:28 | MM_ITS ---
WS: [id number] BILATERAL 3D TOMOSYNTHESIS DIGITAL DIAGNOSTIC MAMMOGRAPHY WITH CAD CLINICAL INFORMATION: ANNUAL - HX BR CA HISTORY: Prior lumpectomy COMPARISON: September 03, 2021 TECHNIQUE: Bilateral CC, MLO, and ML views. FINDINGS: Scattered fibroglandular densities bilaterally. Incidental punctate calcifications. Prior lumpectomy upper inner RIGHT breast with parenchymal fibrosis. No suspicious focal mass, asymmetry, calcifications, or architectural distortion. No evidence of jayy gnancy. MM/[place] [id number] IMPRESSION: BI-RADS: 2-Benign FOLLOW UP: 1 Year Follow-up Recommend return to annual diagnostic mammography.
== END 2022-09-09 14:13 | disposition home or self-care (01) ==
PROVIDERS: PCP Family Medicine; Visit Provider Family Medicine
DX: Z85.3 Personal history of malignant neoplasm of breast (principal)
CPT/HCPCS: 77062; G0279

== ENCOUNTER → 2023-10-26 09:19 | Outpatient (CLI) | payer MEDICARE, SELFPAY ==
--- NOTE | 2023-10-26 | MM_ITS ---
WS: [email or web address] VIEWS: MLO, CC, and ML views both breasts. 3D digital tomosynthesis is also included in this exam. C omparisons: 05/28/2015, 05/31/2016, 06/06/2017, 06/07/2018, 06/18/2019, 06/30/2020, 09/03/2021, 09/09/2022. Findings: There was no sign of mass, architectural distortion or suspicious calcification in either breast. Sta ble appearing postoperative changes of lumpectomy in the upper inner quadrant of the RIGHT breast. Th ere are scattered areas of fibroglandular density MM/[place] [id number] Impression: BI-RADS: 2-Benign finding. FOLLOW-UP: 1 Year Follow-up This mammogram was also analyzed by the Computer Aided Detection System R2 Imag e [employer] Drier.
== END | disposition home or self-care (01) ==
LOC: RAD 09:19
PROVIDERS: PCP Family Medicine; Visit Provider Family Medicine
DX: Z85.3 Personal history of malignant neoplasm of breast (principal)
CPT/HCPCS: 77062; G0279

== ENCOUNTER 2024-11-05 09:48 | Outpatient (CLI) | payer MEDICARE, SELFPAY ==
--- NOTE | 2024-11-05 09:52 | MM_ITS ---
WS: [email or web address] BILATERAL 3D TOMOSYNTHESIS DIGITAL DIAGNOSTIC MAMMOGRAPHY WITH CAD CLINICAL INFORMATION: PERSONAL HX OF MALGINANT NEOPLASM OF BREAST HISTORY: History of breast cancer RIGHT COMPARISON: 2023 TECHNIQUE: Bilateral CC, MLO, and ML views. FINDINGS: Scattered fibroglandular densities bilaterally. Postoperative lumpectomy RIGHT breast upper inner quadrant with parenchymal fibrosis. No suspicious focal mass, asymmetry, calcifications, or architectural distortion. No evidence of malignancy. MM/MM diag BI tomosynthesis [id number] IMPRESSION: DENSITY: There are scattered areas of fibroglandular density. BI-RADS: 2 - Benign. FOLLOW UP: 1 Year Follow-up Recommend return to annual diagnostic mammography.
== END 2024-11-05 09:49 | disposition home or self-care (01) ==
LOC: RAD 09:48
PROVIDERS: PCP Family Medicine; Visit Provider Family Medicine
DX: Z12.31 Encounter for screening mammogram for malignant neoplasm of breast (principal); R92.323 Mammographic fibroglandular density, bilateral breasts; Z98.890 Other specified postprocedural states; N60.31 Fibrosclerosis of right breast
CPT/HCPCS: 77062; G0279

== ENCOUNTER 2025-02-12 13:19 | Outpatient (CLI) | payer MEDICARE, SELFPAY ==
--- NOTE | 2025-02-12 13:27 | XR_ITS ---
WS: [email or web address] SCREENING DEXA SCAN Run3[facility] CLINICAL INFORMATION: OSTEOPOROSIS SCREENING COMPARISON: 2021 FINDINGS: The L1-L4 bone mineral density measures 1.210 g/cm2. This corresponds to a T score score of 0.3 and Z score of 0.8. Left femoral neck bone mineral density measures 0.813 g/cm2. This corresponds to a T score of -1.5 and Z score of -0.8. Right femoral neck bone mineral density measures 0.847 g/cm2. This corresponds to a T score -1.3of and Z score of -0.5. Mean femoral neck bone mineral density measures 0.830 g/cm2. This corresponds to a T score of -1.4 and Z score of -0.6. XR/XR DEXA axial skeleton* [id number] IMPRESSION: Lumbar scoliosis. Normal bone mineralization lumbar spine. Osteopenia femoral necks. Patient's FRAX calculated 10 year probability for major osteoporotic fracture i s 11.4% and osteoporotic hip fracture is 2.4%. Bone mineral density lumbar spine decreased -8.7% Bone density femoral necks decreased -1.9%
== END 2025-02-12 13:20 | disposition home or self-care (01) ==
PROVIDERS: PCP Family Medicine; Visit Provider Family Medicine
DX: Z13.820 Encounter for screening for osteoporosis (principal); M81.0 Age-related osteoporosis without current pathological fracture; M85.88 Other specified disorders of bone density and structure, other site
CPT/HCPCS: 77080